=== PATIENT | female | born 1985 | race Caucasian/White ===

== ENCOUNTER → 2016-09-25 | Outpatient (CLI) | payer MEDICAID | END | disposition home or self-care (01) | LOC: CFH 11:04 | PROVIDERS: ATTEND Nurse Practitioner | DX: N83.201 Unspecified ovarian cyst, right side (principal) | CPT/HCPCS: 76856 ==

== ENCOUNTER 2016-12-15 20:00 | Emergency (ER) | payer MEDICAID ==
[~2016-12-15] VITALS: Ht 149.9 cm; Wt 50.3 kg
[2016-12-15 20:23] VITALS: BP 129/71
[2016-12-15] MEDS ORDERED: IBUPROFEN 200 MG TABLET ONE (20:44)
[2016-12-15] MEDS ORDERED: HYDROcodone/APAP 5/325 TABLET ONE (20:44)
[2016-12-15] MEDS ORDERED: IBUPROFEN 200 MG TABLET PO ONE (21:00)
[2016-12-15] MEDS ORDERED: HYDROcodone/APAP 5/325 TABLET PO ONE (21:00)
== END 2016-12-15 21:15 | disposition home or self-care (01) ==
LOC: ED 21:00
DX: S90.02XA Contusion of left ankle, initial encounter (principal); S90.32XA Contusion of left foot, initial encounter; Z88.0 Allergy status to penicillin; Z90.49 Acquired absence of other specified parts of digestive tract; J30.2 Other seasonal allergic rhinitis; X58.XXXA Exposure to other specified factors, initial encounter; Y93.39 Activity, other involving climbing, rappelling and jumping off; Y92.89 Other specified places as the place of occurrence of the external cause; Y99.8 Other external cause status
CPT/HCPCS: 29515

== ENCOUNTER → 2017-11-13 | Outpatient (CLI) | payer MEDICAID | END | disposition home or self-care (01) | LOC: RAD 15:16 | DX: M79.661 Pain in right lower leg (principal); M79.662 Pain in left lower leg | CPT/HCPCS: 93970 ==

== ENCOUNTER → 2017-11-18 | Outpatient (CLI) | payer MEDICAID | END | disposition home or self-care (01) | LOC: RAD 12:48 | PROVIDERS: ATTEND Nurse Practitioner | DX: M51.37 Other intervertebral disc degeneration, lumbosacral region (principal); M54.16 Radiculopathy, lumbar region | CPT/HCPCS: 72146; 72148 ==